=== PATIENT | female | born 1995 | race Hispanic/Latino ===

== ENCOUNTER 2021-05-18 17:49 | Emergency (ER) | payer SELFPAY ==
[~2021-05-18] VITALS: Ht 170.2 cm; Wt 80.3 kg
[2021-05-18 17:52] VITALS: BP 112/67
== END 2021-05-18 21:49 | disposition left against medical advice (07) ==
LOC: EDH 17:49
DX: R51.9 Headache, unspecified (principal); Z53.21 Procedure and treatment not carried out due to patient leaving prior to being seen by health care provider